=== PATIENT | female | born 1980 | race Caucasian/White ===

== ENCOUNTER 2020-08-29 06:30 | Day surgery (SDC) | payer OTHER ==
[~2020-08-29] VITALS: Ht 175.3 cm; Wt 60.9 kg
[2020-08-29 08:12] VITALS: BP 123/68
[2020-08-29 16:59] VITALS: BP 135/86
== END 2020-08-29 12:15 ==
LOC: DS 06:30 → OR 10:00 → DS 12:15
PROVIDERS: ATTEND Internal Medicine Gastroenterology
DX: K62.5 Hemorrhage of anus and rectum (principal); Z80.0 Family history of malignant neoplasm of digestive organs; K64.8 Other hemorrhoids
CPT/HCPCS: 45378; J1200; J1610; J2250; J2310; J3010; J3490